=== PATIENT | female | born 1995 | race African-American/Black ===

== ENCOUNTER → 2018-06-27 08:18 | Outpatient (CLI) | payer OTHER, SELFPAY ==
--- NOTE | 2018-06-27 08:20 | RAD_ITS ---
STUDY: X-RAY - LEFT HAND, ATTENTION FIRST FINGER REASON FOR EXAM: Female, 22 years old. Pain TECHNIQUE: Three view(s) of the finger were obtained. COMPARISON: None. FINDINGS: Bones: There are no acute osseous abnormalities. Joints: The visualized joints are unremarkable. Soft tissues: The soft tissues are unremarkable. Foreign body: None RAD/Finger(s) Min 2 Views IMPRESSION: No significant abnormalities are seen radiographically. Electronically Signed: Kym Cantor MD at 23:22 EDT Tel Direct: [phone], Service support ,
== END ==
PROVIDERS: Visit Provider Physician Assistant
DX: M65.312 Trigger thumb, left thumb (principal)
CPT/HCPCS: 73140

== ENCOUNTER 2018-07-04 07:21 | Emergency (ER) | payer BC, SELFPAY ==
[2018-07-04 07:22] VITALS: BP 127/70; PULSE 78; RESP 16; TEMP 36.8; O2SAT 100; BMI 21.2
[2018-07-04 08:04] LABS: Absolute Lymphocyte Count 2.63 X10^3/ul (0.83-4.51); Absolute Neutrophil Count 3.7 X10^3/uL (2.0-7.7); Basophil# 0.01 X10^3/uL; Basophil% 0.1 % (0-1); Eosinophil# 0.12 X10^3/uL; Eosinophils% 1.7 % (0-5); Hematocrit 42.2 % (37-47); Hemoglobin 14.1 g/dl (12.0-15.0); Lymphocyte # 2.63 X10^3/ul (4.0); Lymphocyte % 38.3 % (19-41); Mean Corp Hgb Conc 33.4 g/gl (32-36); Mean Corpuscular Hgb 30.1 pg (27.0-32.0); Mean Corpuscular Volume 90.2 fL (81-99); Mean Platelet Vol. 8.1 fl (6.2-12.0); Monocyte# 0.45 X10^3/uL; Monocyte% 6.6 % (0-10); Neutrophil # 3.65 X10^3/uL (2.7-7.7); Neutrophil % 53.2 % (47-70); Platelet Count 220 K/mm3 (150-450); RBC Distribution Width CV 12.2 % (11.6-14.6); RBC Distribution Width SD 39.6 fl (35.1-43.9); Red Blood Count 4.68 M/mm3 (4.2-5.4); White Blood Count 6.9 K/mm3 (4.4-11.0)
[2018-07-04 08:05] LABS: POSITIVE COUNT NO; POSITIVE DIFFERENTIAL NO; POSITIVE MORPHOLOGY NO
[2018-07-04 08:16] LABS: Anion Gap 8 (5-15); BUN 8 mg/dL (7-18); BUN/Creat Ratio 10.1 RATIO (10-20); Chloride 104 mmol/L (98-107); Creatinine, Serum 0.79 mg/dL (0.55-1.02); EST Glomerular Filtration Rate 98 mL/min (>60); Est Glom Filt Rate - Afr Amer 119 mL/min (>60); Estimated Creatinine Clearance 93.97 ml/min; Glucose 90 mg/dL (74-106); Potassium 3.5 mmol/L (3.5-5.1); Sodium Level 138 mmol/L (136-145)
--- NOTE | 2018-07-04 08:56 | ED.VISSUMM ---
- ER Visit Summary Date of Service: 07/04/18 Chief Complaint: Nausea, vomiting and diarrhea with left-sided abdominal pain History of Present Illness: The patient is a 22 F who presents with diarrhea that started 3 days ago. She has not had a bowel movement since yesterday. She had one loose stool. She reports bright red blood. She has no risk factors for infectious diarrhea i.e. no ill contacts, no antibiotic usage past month, no consumption of raw or undercooked food, no reptiles for pets. There is no history of inflammatory bowel disorder. She denies orthostatic symptoms. She reports one episode of emesis today which was black in color. There is no obvious blood or coffee grounds. She does report left-sided discomfort which is sharp and crampy in nature. She denies dysuria, frequency, urgency or hematuria. She denies fever, chills or night sweats. She has a hormone implant and has not had a menstrual period in a long time. She denies any food intolerance. She denies myalgias or arthralgias. She denies rash. Physical Examination: Vital signs are normal. She is afebrile. HEENT exam unremarkable with moist mucosa. Heart is regular without murmur, gallop or rub. S1 and S2 are normal. Lungs are clear to auscultation with good movement of air bilaterally. Abdomen is tympanitic with diminished bowel sounds. Patient has pain out of proportion to light touch of her skin. There is no evidence of umbilical or inguinal hernia. There is no inguinal lymphadenopathy. There is no referred pain. There is no rash or lesions that would suggest shingles. There is no rash of the lower extremities. There is no joint tenderness or swelling. Neuro exam is nonfocal. Test Results: CBC and basic metabolic panel are normal. Emergency Department Course and Treatment: Since patient reports bloody diarrhea for 3 days a CBC was obtained to assess for leukocytosis and H&H. BMP was obtained to evaluate for renal dysfunction and elevated BUN to creatinine ratio to suggest significant GI bleed. NG was placed and there was no blood, coffee-ground emesis or any abnormality. Since was reexamined prior to discharge. She still had significant tenderness. For this reason, a CT of the abdomen and pelvis with IV contrast was obtained. Radiologist report was noted. Since there was no concern for obstruction oral contrast is not required/indicated. Check Treatment Plan: Patient was treated with Bentyl for her crampy sharp pain Disposition: Discharged home with appropriate home-going instructions Impression: Left-sided abdominal pain with nausea, vomiting and diarrhea. This note was generated with [employer] dictation software. It may contain incorrect words, spelling, and punctuation that were not noted in review of the chart prior to signing ED Disposition - Plan for ED Patient: Chief Complaint: GI Bleed Instructions: ED Abdominal Pain Unkn Cause, ED Hematochezia Stable Prescriptions: Dicyclomine HCl [Bentyl] 20 mg PO TIDAC #20 cap Referrals: Care Physician,No Primary [Primary Care Provider] - Douglas Johnson MD [STAFF PHYSICIAN] - 1-2 Days if not improving Additional Instructions: You were referred to Dr. Tyron Johnson since she do not have a primary care physician and your prescription was electronically transmitted to [facility] pharmacy.
--- NOTE | 2018-07-04 09:11 | CT_ITS ---
STUDY: CT ABDOMEN AND PELVIS WITH CONTRAST REASON FOR EXAM: Female, 22 years old. Bloody diarrhea and left lower quadrant pain RADIATION DOSAGE (If Supplied By Facility): CTDIvol = ( 11.08 ) mGy, DLP = ( 259.03 ) mGycm TECHNIQUE: Transaxial images were obtained from the dome of the diaphragm to the symphysis pubis without oral contrast. 100 ml of Isovue 300 contrast was administered. Sagittal and coronal images were reconstructed. Individualized dose optimization techniques were used for this CT. COMPARISON: None. FINDINGS: The visualized lung bases are unremarkable. The visualized portions of the heart are within normal limits. Normal liver. Normal gallbladder and extrahepatic biliary system. Normal spleen. Normal pancreas. Normal bilateral adrenal glands. Normal right kidney. Normal left kidney. Normal visualized stomach. Normal small intestine. Normal colon. The appendix is visualized and appears normal. Overall, limited evaluation of the bowel without oral contrast. Normal abdominal aorta. Normal inferior vena cava. Normal retroperitoneum. Normal urinary bladder. Normal visualized uterus. Normal abdominal wall. Normal osseous structures. CT/Abdomen/Pelvis W IV Cont ONLY IMPRESSION: Limited exam without oral contrast. No evidence of acute findings of the small or large bowel. Unremarkable appendix. Electronically Signed: Jesus Alberto He DO at 10:02 EDT Tel , Service support ,
[2018-07-04] MEDS: Dicyclomine 10 MG Capsule 20 MG PO (09:13)
== END 2018-07-04 10:51 | disposition home or self-care (01) ==
LOC: ED 07:56
PROVIDERS: Emergency Provider Emergency Medicine
DX: K62.5 Hemorrhage of anus and rectum (principal); R11.2 Nausea with vomiting, unspecified; R19.7 Diarrhea, unspecified; R10.12 Left upper quadrant pain; R10.32 Left lower quadrant pain; Z72.0 Tobacco use
CPT/HCPCS: 74177; 80048; 85025; 99285; Q9967; A4216

== ENCOUNTER → 2019-11-14 15:45 | Outpatient (CLI) | payer OTHER, SELFPAY ==
[2019-02-03 15:30] VITALS: BMI 21.2
--- NOTE | 2019-11-14 16:00 | MRI_ITS ---
STUDY: MRI LEFT KNEE REASON FOR EXAM: Female, 23 years old. Pain. TECHNIQUE: Standardized fat and water weighted pulse sequences were obtained in all 3 orthogonal planes. COMPARISON: None. FINDINGS: There is grade 2 signal of the periphery of the posterior horn of the medial meniscus. Normal hyaline cartilage of the medial femorotibial compartment. Normal medial femoral condyle and tibial plateau. Normal medial collateral ligamentous complex (MCL). Normal distal semimembranosus, gracilis and semitendinosus tendons. Normal lateral meniscus. Normal hyaline cartilage of the lateral femorotibial compartment. Normal lateral femoral condyle and tibial plateau. Normal proximal tibiofibular articulation. Normal lateral collateral (fibular) ligament. Normal popliteus tendon. Normal biceps femoris tendon. Normal anterior cruciate ligament (ACL). Normal posterior cruciate ligament (PCL). There is a patella terry deformity. Normal hyaline cartilage of the patellofemoral compartment. Normal medial and lateral patellar retinaculum. Normal quadriceps tendon. Tendinosis of the distal patellar tendon, series 4 image 16/24 Normal Hoffa''s fat pad. There is a small volume joint effusion. .There is a 2.3 cm Zurita''s cyst. The soft tissues are unremarkable. The otherwise visualized osseous structures are unremarkable. MRI/Lower Ext Joint Only (Routine) IMPRESSION: Patella terry. Tendinosis of the patellar tendon. Degenerative signal of the medial meniscus. No focal tear. Joint effusion with popliteal cyst Electronically Signed: Carl Bob MD at 17:26 EST , Service support ,
== END ==
PROVIDERS: PCP Family Medicine; Referring Provider Family Medicine; Visit Provider Family Medicine
DX: S83.207A Unspecified tear of unspecified meniscus, current injury, left knee, initial encounter (principal)
CPT/HCPCS: 73721

== ENCOUNTER 2019-12-11 15:00 | Outpatient (RCR) | payer OTHER, SELFPAY ==
[2019-02-03 15:30] VITALS: BMI 21.2
--- NOTE | 2019-11-06 16:15 | HP.PTEVAL_ITS ---
Patient's Visit Information SARAH FLYNN is a 23 year old F referred to Physical Therapy by Malgorzata Burris DO with a diagnosis of Left Meniscus Tear. Date of Evaluation: 11/06/19 Physical Therapist: Linda Morales DPT - Visit Plan Frequency: 2x /Week Duration: 4 Weeks Plan: Focus on LE and core s/s- Modality of Estim as needed for pain control/edema mgmt - Subjective Findings: Left knee pain- insidious onset since May- had her try to run her PT test- her knee swelled up and she was unable to finish. She has pain when she puts pressure on it and it clicks all the time. She reports that she saw [facility] (July) that told her nothing showed up. They said they want to set up and MRI but she hs not heard anything. She had to push for her to come to PT. She was supposed to have the MRI Wednesday but they kicked it out further. Next PT test is supposed to be in 90 days. Pain is located on the medial side of the knee and down the patellar tendon- no radiating pain. Describes the pain as closer to dull and achy but its all the time. When she is not in its better Best in last 24 hours: 5/10 Worst in the last 24 hours: 7/10 Agg:stairs both up and down, running, walking, standing, putting weight through it. No N/T in the LE. Sleep: not disturbed- belly sleeper. 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 PMHx:none Meds: none - Objective Posture: FH, RS- can correct but does not maintain. Gait: slightly antalgic- decreased stance on the right LE with decrease heel/toe pattern. Stairs: non recip. HR/TR: able but reports discomfort in the posterior knee with TR. SLS: 15 sec with increased muscle activation and reports pain. Edema: moderate around the distal patella. Palpation: tender along medial joint line and distal patella. ROM: 0-130 degrees with pain at end range flexion. Strength: Ankle: 5/5, Knee: 4+/5 with pain, Hip: 4/5 throughout with pain in the knee with testing. Core: fair. Flex: HS: moderate, Gastroc: moderate. Special Test: Elias: positive - Goals Goal 1:: LTG: Patient will be I with HEP and progression Goal Time Frame: 4-6 Weeks Goal 2:: STG: Patient will ambulate >300 feet with a normalized gait pattern Goal Time Frame: 2-4 Weeks Goal 3:: STG: Patient will asc 8 stairs recip with 1 HR Goal Time Frame: 2-4 Weeks Goal 4:: LTG: Patient will desc 8 stairs recip with 1 HR Goal Time Frame: 4-6 Weeks Goal 5:: LTG: Patient will demo no edema in the right knee Goal Time Frame: 4-6 Weeks - Rehabilitation Potential Physical Therapy Diagnosis: Patient presents with hypomobiliy- she has decreased pain free ROM, strength, flex and muscular endurance in the right knee increasing pain with ADL's and work related activities. Rehabilitation Potential: Fair - Anticipated Interventions Patient/Client Instruction: Educate patient on: Benefits of Fitness Program Therapeutic Exercise to Include: Strength training, Endurance training, Balance training, Coordination, Agility training, Body mechanics, Postural training, Fl exibilty training, Gait and locomotor training, Neuromotor development, Dynamic Lumbar Stabilization For the Purpose of:: To improve muscle performance and motor function TENS: Yes Cryotherapy (ice pack, ice massage): Yes Thermo therapy (hot pack): Yes Ultrasound (thermal/non thermal): Yes For the Purpose of:: To decrease pain, To decrease swelling/inflammation Thank you for the opportunity to evaluate your patient. For Medicare and Medicare HMO plans, please review the plan of care and approve it. It will need to be FAXED BACK to us at [phone] for Medicare purposes. For Medicare only, by signing this I certify the plan of care. Please let me know if there are questions or concerns regarding this plan of care. Physician Signature: Date:
--- NOTE | 2019-12-11 16:22 | HP.PTDCSUM_ITS ---
HP - PT D/C Summary It has been my pleasure to treat SARAH FLYNN under orders from Malgorzata Burris DO, for the diagnosis of Left Meniscus Tear for a total of 8 visit(s). Discharge Date: Please see the following information for a summary of their discharge status. - Subjective Subjective: Patient reports that she feels that she is 50% better- she is able to do more but still has pain and swelling with any kind of higher level movement like squatting, running, jumping. She has more pain after standing at work - Pain left knee Pain Intensity (Out of 10): 5 - Objective Objective/Function: Posture: FH, RS- can correct but does not maintain. Gait: slightly antalgic- decreased stance on the right LE with decrease heel/toe pattern. Stairs: recip with 1 HR. HR/TR: able but reports discomfort in the po sterior knee with TR. SLS: 30 sec with increased muscle activation and reports pain. Edema: mild around the distal patella. Palpation: tender along medial joint line and distal patella. ROM: 0-90 degrees with pain. Strength: Ankle: 5/5, Knee: 4+/5 with pain, Hip: 4+/5 throughout with pain in the knee with testing. Core: fair. Flex: HS: moderate, Gastroc: moderate. Special Test: Elias: positive - Goals Goal 1:: LTG: Patient will be I with HEP and progression Goal Progress: Goal Met Goal 2:: STG: Patient will ambulate >300 feet with a normalized gait pattern Goal Progress: Progressing Goal 3:: STG: Patient will asc 8 stairs recip with 1 HR Goal Progress: Goal Met Goal 4:: LTG: Patient will desc 8 stairs recip with 1 HR Goal Progress: Goal Met Goal 5:: LTG: Patient will demo no edema in the right knee Goal Progress: Progressing - Plan Plan: Discharge-return to MD for further evaluation - D/C Information If there are questions or concerns regarding this patient's physical therapy, please feel free to call me at [phone]. Thank you for the referral of this patient. Sincerely, Linda Morales DPT
== END 2019-12-11 19:00 | disposition home or self-care (01) ==
LOC: PT 15:00
PROVIDERS: PCP Family Medicine; Referring Provider Family Medicine; Visit Provider Family Medicine
DX: S83.207D Unspecified tear of unspecified meniscus, current injury, left knee, subsequent encounter (principal)
CPT/HCPCS: 97014; 97110; 97161; 97164; G0283